=== PATIENT | female | born 1970 | race Caucasian/White ===

== ENCOUNTER 2017-10-22 04:44 | Inpatient (IN) | payer OTHER ==
[~2017-10-22] VITALS: Ht 154.9 cm; Wt 98.4 kg
--- NOTE | 2017-10-22 05:00 | NUR ---
TO BED 11 A 47 YO FEMALE PATIENT BIB FAMILY C/O SEVERE EPIGASTRIC PAIN WITH N/V X 4 HOURS. PATIENT IS AAOX4, NAD NOTED. VSS. SKIN WARM AND DRY. PLACED PATIENT ON MONITOR. GOWNED. COMFORT MEASURES RENDERED.
[2017-10-22] MEDS ORDERED: ONDANSETRON HCL/PF 4 MG/2 ML VIAL ONE ×2 (05:08→06:57)
[2017-10-22] MEDS ORDERED: FENTANYL PF 100MCG/2ML AMPUL ONE (05:08)
[2017-10-22] MEDS ORDERED: FENTANYL PF 100MCG/2ML AMPUL IV ONE (05:30)
[2017-10-22] MEDS ORDERED: IV NS 0.9% 1,000 ML BAG IV ONE (05:30)
[2017-10-22] MEDS ORDERED: ONDANSETRON HCL/PF 4 MG/2 ML VIAL IVP ONE (05:30)
--- NOTE | 2017-10-22 05:30 | NUR ---
STARTED A SALINE LOCK ON THE LEFT HAND G20, BLOOD DRAWN AND SENT TO LAB.
[2017-10-22 05:34] LABS: BASOPHILS # (AUTO) 0.1 /CMM (0.0-0.2); EOSINOPHILS % (AUTO) 0.1 % (0.0-6.0); HEMATOCRIT 41 % (33-45); HEMOGLOBIN 13.8 g/dL (11.5-14.8); LYMPHOCYTES # (AUTO) 1.1 /CMM (0.8-4.8); LYMPHOCYTES % (AUTO) 13.3 % (20.0-44.0); MEAN CORPUSCULAR HGB CONC 34 g/dl (31.0-36.0); MEAN CORPUSCULAR VOLUME 89 fL (82-100); MONOCYTES # (AUTO) 0.2 /CMM (0.1-1.30); MONOCYTES % (AUTO) 1.9 % (2.0-12.0); NEUTROPHILS # (AUTO) 6.7 /CMM (1.8-8.9); NEUTROPHILS % (AUTO) 83.7 % (43.0-81.0); PLATELET COUNT (AUTO) 215 /CMM (150-450); RDW COEFFICIENT OF VARIATION 12.2 (11.5-15.0); RED BLOOD CELL COUNT(AUTO) 4.55 MIL/uL (4.0-5.2); WHITE BLOOD COUNT (AUTO) 8.1 K/uL (4.3-11.0)
--- NOTE | 2017-10-22 05:35 | NUR ---
MEDICATED PATIENT ORDERED BY DR KENDALL
--- NOTE | 2017-10-22 05:37 | NUR ---
WASTED 50MGC FENTANYL WITH TYE THAO.
--- NOTE | 2017-10-22 05:37 | NUR ---
WITNESSED WASTE OF FENTANYL 50MCG WITH TYE LIRA.
[2017-10-22 05:50] LABS: ALBUMIN 3.6 g/dL (3.4-5.0); BILIRUBIN,DIRECT 0.1 mg/dL (0.0-0.2); BILIRUBIN,TOTAL 0.3 mg/dL (0.2-1.0); CALCIUM, SERUM 8.5 mg/dL (8.5-10.1); CREATININE 0.8 mg/dL (0.6-1.3); POTASSIUM 5.1 mmol/L (3.5-5.1); TOTAL PROTEIN, SERUM 7.4 g/dL (6.4-8.2)
[2017-10-22 06:38] LABS: APPEARANCE,URINE SL CLOUDY (CLEAR); BILIRUBIN,URINE NEGATIVE (NEGATIVE); BLOOD, URINE 2+ Ery/uL (NEGATIVE); COLOR,URINE YELLOW (YELLOW); KETONES,URINE NEGATIVE (NEGATIVE); LEUKOCYTE ESTERASE ,URINE NEGATIVE (NEGATIVE); NITRITE, URINE NEGATIVE (NEGATIVE); PROTEIN,URINE NEGATIVE (NEGATIVE); UGLUCOSE NEGATIVE (NEGATIVE); UROBILINOGEN,URINE 0.2 EU/dL (0.2)
[2017-10-22] MEDS ORDERED: KETOROLAC TROMETHAMINE INJ 30 MG/ML VIAL ONE (06:57)
[2017-10-22] MEDS ORDERED: MORPHINE SULFATE INJ 4 MG/ML DISP.SYRIN ONE (06:57)
[2017-10-22] MEDS ORDERED: ONDANSETRON HCL/PF - ER 4 MG/2 ML VIAL IV ONE (07:00)
[2017-10-22] MEDS ORDERED: MORPHINE SULFATE INJ 2 MG/ML DISP.SYRIN IV ONE (07:00)
[2017-10-22] MEDS ORDERED: KETOROLAC TROMETHAMINE INJ 30 MG/ML VIAL IV ONE (07:00)
--- NOTE | 2017-10-22 07:20 | NUR ---
RECEIVED REPORT FOR TSERING.
--- NOTE | 2017-10-22 08:08 | NUR ---
CALLED [facility] FOR ADMISSION
--- NOTE | 2017-10-22 08:51 | NUR ---
REPORT GIVEN TO CECI GAMBLE FOR TSERING UPON ADMISSION.
[2017-10-22 09:01] LABS: BACTERIA,URINE Rare /HPF (None Seen); SQUAMOUS EPITHELIAL CELL,UR Few /HPF (None Seen); WBC,URINE 0-2 /HPF (0-3)
[2017-10-22 09:15] VITALS: BP 120/72
--- NOTE | 2017-10-22 09:20 | NUR ---
PATIENT TRANSPORTED TO [facility] VIA STRETCHER. RNCECI TO PROVIDE TSERING.
--- NOTE | 2017-10-22 09:30 | NUR ---
MS TRANSPLANTER NOTE RECEIVED REPORT FROM PRIYANKA KELSEY RN. PATIENT IS ALERT AND ORIENTED X4. NO PAIN AT THIS TIME. NO SOB OR DISTRESS NOTED. ABLE TO COMMUNICATE NEEDS. IV ON LEFT HAND 22G INTACT AND PATENT NO REDNESS OR SWELLING NOTED. PER PATIENT HAD NAUSEA AND VOMITING FOR >3 DAYS DUE TO EATING GREASY, FATTY FOOD. NO NAUSEA OR VOMITING NOTED. FULL CODE NO ISOLATION. NKDA. 97% ON ROOM AIR TOLERATING WELL. ALL LABS WITHIN NORMAL LIMIT. AWAITING MD ORDERS AT THIS TIME. PATIENT CURRENTLY NPO AT THIS TIME. WILL WAIT FOR MD ORDERS.
[2017-10-22] MEDS ORDERED: ACETAMINOPHEN 325 MG TABLET PO PRN (11:30)
[2017-10-22] MEDS ORDERED: HYDROCODONE/APAP 5/325MG 1 EACH TABLET PO PRN (11:30)
[2017-10-22] MEDS ORDERED: ONDANSETRON HCL/PF 4 MG/2 ML VIAL IVP PRN (11:30)
[2017-10-22] MEDS ORDERED: ZOLPIDEM TARTRATE 5 MG TABLET PO PRN (11:30)
[2017-10-22] MEDS ORDERED: Z GUARD REMEDY 2 OZ OINT TP PRN (11:30)
[2017-10-22] MEDS ORDERED: MAGNESIUM HYDROXIDE 30 ML UDC PO PRN (11:30)
[2017-10-22] MEDS ORDERED: FENTANYL PF 100MCG/2ML AMPUL IV PRN (11:30)
[2017-10-22] MEDS: IV NS 0.9% 1,000 ML IV SCH ×2 (11:52→21:30)
[2017-10-22] MEDS: PIPERACILLIN /TAZOBACTAM 3.375 G in IV D5W 100 ML IV SCH ×3 (12:44→23:54)
--- NOTE | 2017-10-22 13:38 | NUR ---
MS RN NOTE PATIENT HEAD DOWN FOR NUCLEAR MEDICINE HIDA SCAN
--- NOTE | 2017-10-22 15:17 | NUR ---
MS RN NOTE PATIENT BACK FROM HIDA SCAN. PATIENT TO GO BACK AROUND 5:30
[2017-10-22 16:00] VITALS: BP 113/70
--- NOTE | 2017-10-22 17:30 | NUR ---
MS RN NOTE PATIENT HEADED TO HIDA SCAN AND WILL MONITOR PATIENT WHEN RETURNS
--- NOTE | 2017-10-22 18:00 | NUR ---
MS RN NOTE PATIENT BACK FROM HIDA SCAN. PATIENT STABLE AND AWAITING RESULTS AT THIS TIME
--- NOTE | 2017-10-22 18:35 | NUR ---
MS RN CLOSING NOTE PATIENT RESTING AT THIS TIME. NO PAIN AT THIS TIME. NO SOB OR DISTRESS NOTED. CALL LIGHT WITHIN REACH AT ALL TIMES. SAFETY MEASURES IMPLEMENTED. ABLE TO COMMUNICATE NEEDS. IV INTACT AND PATENT WITH IV ANTIBIOTICS AT THIS TIME TOLERATING WELL. ALL DUE MEDICATIONS GIVEN ORDERED. ALL NURSING CARE NEEDS ATTENDED TO NEEDED. POSSIBLE SURGERY WITH DR. GASPAR, WILL ENDORSE TO REGULATORY COORDINATOR NURSE FOR TSERING
--- NOTE | 2017-10-22 19:30 | NUR ---
MS/RN OPENING NOTES PT RECEIVED AWAKE, RESTING COMFORTABLY IN BED. A/OX4. ON ROOM AIR, BREATHING EVEN AND UNLABORED. DENIES SOB OR PAIN AT THIS TIME. PT SAYS SHE IS COMFORTABLE AT THIS TIME. IV TO LEFT HAND PATENT AND INTACT RUNNING IVF ORDERED. FAMILY AT BEDSIDE. BED IN LOW/LOCKED POSITION WITH CALL LIGHT IN REACH. SIDE RAILS UPX2. WILL CONTINUE TO MONITOR
[2017-10-22 20:00] VITALS: BP 111/62
--- NOTE | 2017-10-22 20:45 | NUR ---
MS/RN NOTES RELAYED HIDA SCAN RESULT TO DR. GASPAR. PT IS ANXIOUS TO KNOW IF SURGERY WILL BE DONE TONIGHT OR TOMORROW. PER DR. GASPAR, PLAN FOR SURGERY TOMORROW AT 1PM. METAL DRILL PRESS OPERATOR AND NURSING CREATIVE SERVICES COORDINATOR MADE AWARE
[2017-10-23 03:25] LABS: INR 0.95 (0.87-1.13)
--- NOTE | 2017-10-23 05:32 | NUR ---
MS/RN NOTES PT NOTED WITH SOME ANXIETY, IS AFRAID OF NEEDLES, NERVOUS ABOUT LAB DRAW THIS AM AND WOULD LIKE SOMETHING TO CALM HER DOWN ESPECIALLY PRIOR TO GOING TO SURGERY TODAY. EMOTIONAL SUPPORT PRN. DR. BRINK WITH ORDERS FOR ATIVAN 1MG IV Q6H PRN. ORDERS READBACK PER PROTOCOL.
[2017-10-23] MEDS: LORAZEPAM INJ 2 MG/ML VIAL IV PRN ×2 (05:51→11:53)
[2017-10-23] MEDS: PIPERACILLIN /TAZOBACTAM 3.375 G in IV D5W 100 ML IV SCH (05:52)
[2017-10-23 06:54] LABS: BASOPHILS % (AUTO) 0.6 % (0.0-2.0); EOSINOPHILS % (AUTO) 0.7 % (0.0-6.0); HEMATOCRIT 36 % (33-45); HEMOGLOBIN 12.2 g/dL (11.5-14.8); LYMPHOCYTES # (AUTO) 2.5 /CMM (0.8-4.8); LYMPHOCYTES % (AUTO) 38.3 % (20.0-44.0); MEAN CORPUSCULAR HGB CONC 34 g/dl (31.0-36.0); MEAN CORPUSCULAR VOLUME 89 fL (82-100); MONOCYTES # (AUTO) 0.5 /CMM (0.1-1.30); MONOCYTES % (AUTO) 7.8 % (2.0-12.0); NEUTROPHILS # (AUTO) 3.5 /CMM (1.8-8.9); NEUTROPHILS % (AUTO) 52.6 % (43.0-81.0); PLATELET COUNT (AUTO) 193 /CMM (150-450); RDW COEFFICIENT OF VARIATION 12.8 (11.5-15.0); RED BLOOD CELL COUNT(AUTO) 4.02 MIL/uL (4.0-5.2); WHITE BLOOD COUNT (AUTO) 6.6 K/uL (4.3-11.0)
[2017-10-23 07:24] LABS: CALCIUM, SERUM 7.8 mg/dL (8.5-10.1); CREATININE 0.9 mg/dL (0.6-1.3); MAGNESIUM 2.1 mg/dL (1.8-2.4); PHOSPHORUS 2.7 mg/dL (2.5-4.9); POTASSIUM 3.5 mmol/L (3.5-5.1)
--- NOTE | 2017-10-23 07:46 | NUR ---
MS/RN CLOSING NOTES PT CURRENTLY ASLEEP, MOTHER AT BEDSIDE. ON ROOM AIR ,BREATHING EVEN AND UNLABORED. CALM POST ADMINISTRATION OF ATIVAN. PT NPO FOR SURGERY TODAY WITH DR. GASPAR AT 1PM. IV TO LEFT HAND PATENT AND INTACT RUNNING IVF ORDERED. ZOSYN CURRENTLY INFUSING. RADIOLOGY CALLED X3 FOR CHEST XRAY, CHANGED FROM ROUTINE TO STAT. KEPT PT COMFORTABLE DURING SHIFT. EMOTIONAL SUPPORT PROVIDED PRN. BED IN LOW/LOCKED POSITION WITH CALL LIGHT IN REACH. SIDE RAILS UPX2. ENDORSED TO DAY SHIFT RN TSERING.
[2017-10-23] MEDS ORDERED: IV NS 0.9% 1,000 ML IV PRN (07:51)
[2017-10-23 08:00] VITALS: BP 118/63
[2017-10-23] MEDS: PIPERACILLIN /TAZOBACTAM 3.375 G in IV D5W 50 ML IV SCH ×3 (11:52→23:35)
[2017-10-23] MEDS ORDERED: LIDOCAINE 0.5% HCL 50 ML VIAL ONE ×2 (12:57→13:52)
[2017-10-23] MEDS ORDERED: BUPIVACAINE 0.25% 75 MG/30 ML VIAL ONE (12:57)
[2017-10-23] MEDS ORDERED: MIDAZOLAM HCL 2 MG/2ML VIAL ONE (13:32)
[2017-10-23] MEDS ORDERED: FENTANYL PF 250MCG/5ML AMPUL ONE (13:32)
[2017-10-23] MEDS ORDERED: SUCCINYLCHOLINE CHLORIDE 20 MG/ML VIAL ONE (13:46)
[2017-10-23] MEDS ORDERED: ROCURONIUM BROMIDE 50 MG/5 ML ONE (13:46)
[2017-10-23] MEDS ORDERED: DESFLURANE 240 ML BOTTLE IH ONE ×2 (14:22→15:37)
[2017-10-23] MEDS ORDERED: FLUMAZENIL 0.5 MG VIAL ONE (16:21)
[2017-10-23] MEDS ORDERED: METOCLOPRAMIDE HCL 10 MG/2 ML VIAL ONE (17:23)
[2017-10-23] MEDS ORDERED: FENTANYL PF 100MCG/2ML AMPUL IV PRN (17:30)
--- NOTE | 2017-10-23 17:39 | NUR ---
Patient lives locally,she is ambulatory and independent with adl's. Has good family support. No dc planning needs identified at this time. Addendum: 10/23/17 at 1739 by FABIENNE GIPSON RN Amended: Links added.
--- NOTE | 2017-10-23 17:43 | NUR ---
PT RECEIVED FROM SURGERY. LETHARGIC, BUT NO SOB OR DISTRESS, DENIES PAIN. VITALS CHECKED AND RECORDED, WILL RECORD PER POLICY. CHECKED MD ORDERS. WILL PLACE ALL AVAILABLE. BED IN A LOW POSITION, CALL LIGHT WITHIN REACH, FAMILY AT THE BEDSIDE. WILL MONITOR.
[2017-10-23 17:45] VITALS: BP 110/60
[2017-10-23 18:00] VITALS: BP 104/66
[2017-10-23] MEDS: IV LR 1000 ML 1,000 ML IV PRN (18:05)
[2017-10-23 18:15] VITALS: BP 108/69
[2017-10-23 18:30] VITALS: BP 117/56
[2017-10-23] MEDS: ONDANSETRON HCL/PF 4 MG/2 ML VIAL IVP PRN (18:32)
--- NOTE | 2017-10-23 18:57 | NUR ---
NO SIGNIFICANT CHANGES IN PATIENT CONDITION THROUGHOUT THE SHIFT. NO SOB OR DISTRESS NOTED AT THIS TIME. PATIENT DENIES PAIN. BED IN A LOW POSITION, CALL LIGHT WITHIN PATIENT REACH, FAMILY IS AT THE BEDSIDE. WILL ENDORSE FOR TSERING.
--- NOTE | 2017-10-23 19:35 | NUR ---
MS/RN NOTES RECEIVED PT. LYING IN BED RESTING. BREATHING EVEN AND UNLABORED ON 2LPM O2 VIA NC. NO SOB, RESPIRATORY DISTRESS OR COMPLAINTS OF PAIN NOTED AT THIS TIME. PT. IS EASILY AROUSABLE TO NAME. AWAKE, ALERT AND ORIENTED X 4. PT. WITH LEFT HAND 22 GAUGE PERIPHERAL IV PRESENT, PATENT AND INTACT ADMINISTERING TO PT. LR @ 120ML/HR. PT. IS S/P CHOLECYSTECTOMY WITH DR. GASPAR ON 10/23/17. PT. WITH FOUR SURGICAL INCISIONS NOTED TO ABDOMEN. NO BLEEDING, DRAINAGE OR S/S OF INFECTION NOTED AT SURGICAL INCISION SITES. PT. WITH FAMILY MEMBERS PRESENT AT BEDSIDE. BED LOCKED AND IN LOWEST POSITION, SIDE RAILS UP X2, CALL LIGHT WITHIN REACH, WILL CONTINUE TO MONITOR.
[2017-10-23 20:00] VITALS: BP 102/61
[2017-10-24] MEDS: ONDANSETRON HCL/PF 4 MG/2 ML VIAL IVP PRN ×2 (00:44→07:57)
[2017-10-24] MEDS: HYDROCODONE/APAP 5/325MG 1 EACH TABLET PO PRN ×4 (00:44→20:45)
[2017-10-24] MEDS: IV LR 1000 ML 1,000 ML IV PRN ×2 (06:22→22:37)
[2017-10-24] MEDS: PIPERACILLIN /TAZOBACTAM 3.375 G in IV D5W 50 ML IV SCH (06:22)
--- NOTE | 2017-10-24 06:43 | NUR ---
MS/RN NOTES PT. LYING IN BED RESTING. BREATHING EVEN AND UNLABORED ON 2LPM O2 VIA NC. NO SOB, RESPIRATORY DISTRESS OR COMPLAINTS OF PAIN NOTED AT THIS TIME. PT. WITH LEFT HAND 22 GAUGE PERIPHERAL IV PRESENT, PATENT AND INTACT ADMINISTERING TO PT. LR @ 120ML/HR. PT. REFUSING PICTURES OF INCISION SITES AT THIS TIME AND STATES " ILL HAVE IT DONE AFTER I GET MY NEXT PAIN MEDICATION". WILL ENDORSE TO DAYSHIFT NURSE TO FOLLOW UP WITH PICTURES OF INCISION SITES. ALL PT. NEEDS MET. BED LOCKED AND IN LOWEST POSITION, SIDE RAILS UP X2, CALL LIGHT WITHIN REACH, WILL ENDORSE TO DAYSHIFT NURSE FOR CONTINUITY OF CARE.
--- NOTE | 2017-10-24 06:50 | NUR ---
MS/RN NOTES PT. IS REFUSING AM BLOOD DRAW AT THIS TIME. PT. STATES SHE THINKS SHE WILL DO IT AFTER SHE HAS BREAKFAST AND PAIN MEDICATION LATER THIS MORNING. PT. HAS NO COMPLAINTS OF PAIN AT THIS TIME. WILL ENDORSE TO DAYSOHFT NURSE TO FOLLOW UP.
--- NOTE | 2017-10-24 07:20 | NUR ---
REPORT RECEIVED AT THE BEDSIDE. NO SOB OR DISTRESS NOTED AT THIS TIME. PATIENT REPORTS TOLERABLE PAIN AT THIS TIME. BED IN A LOW POSITION, CALL LIGHT WITHIN PATIENT REACH. WILL CONTINUE TO MONITOR.
[2017-10-24 08:00] VITALS: BP 109/65
[2017-10-24 11:41] LABS: BASOPHILS % (AUTO) 0.3 % (0.0-2.0); HEMATOCRIT 35 % (33-45); HEMOGLOBIN 12.1 g/dL (11.5-14.8); LYMPHOCYTES # (AUTO) 2.2 /CMM (0.8-4.8); LYMPHOCYTES % (AUTO) 22.3 % (20.0-44.0); MEAN CORPUSCULAR HGB CONC 34 g/dl (31.0-36.0); MEAN CORPUSCULAR VOLUME 89 fL (82-100); MONOCYTES # (AUTO) 0.8 /CMM (0.1-1.30); MONOCYTES % (AUTO) 8.5 % (2.0-12.0); NEUTROPHILS # (AUTO) 6.7 /CMM (1.8-8.9); NEUTROPHILS % (AUTO) 68.9 % (43.0-81.0); PLATELET COUNT (AUTO) 210 /CMM (150-450); RDW COEFFICIENT OF VARIATION 13.1 (11.5-15.0); RED BLOOD CELL COUNT(AUTO) 3.95 MIL/uL (4.0-5.2); WHITE BLOOD COUNT (AUTO) 9.7 K/uL (4.3-11.0)
[2017-10-24 12:22] LABS: CALCIUM, SERUM 7.8 mg/dL (8.5-10.1); CREATININE 0.9 mg/dL (0.6-1.3); POTASSIUM 3.3 mmol/L (3.5-5.1)
[2017-10-24 16:00] VITALS: BP 113/58
--- NOTE | 2017-10-24 19:20 | NUR ---
MS/RN NOTES RECEIVED PT. LYING IN BED. PT. IS AWAKE, ALERT AND ORIENTED X 4. BREATHING EVEN AND UNLABORED ON ROOM AIR. NO SOB, RESPIRATORY DISTRESS OR COMPLAINTS OF PAIN NOTED AT THIS TIME. PT. WITH LEFT HAND 22 GAUGE PERIPHERAL IV PRESENT, PATENT AND INTACT ADMINISTERING TO PT. LR @ 120ML/HR. PT. IS S/P CHOLECYSTECTOMY WITH DR. GASPAR ON 10/23/17 WITH FOUR SURGICAL INCISIONS NOTED TO ABDOMEN. NO BLEEDING, DRAINAGE OR S/S OF INFECTION NOTED AT SURGICAL INCISION SITES. PT. WITH FAMILY MEMBERS PRESENT AT BEDSIDE. BED LOCKED AND IN LOWEST POSITION, SIDE RAILS UP X2, CALL LIGHT WITHIN REACH, WILL CONTINUE TO MONITOR.
--- NOTE | 2017-10-24 19:28 | NUR ---
MS/RN NOTES CALLED [facility] AND NOTIFIED EPIC BUTT PRESSER HERMAN SANTANA PT. POTASSIUM LEVEL IS 3.3 AND HAS NOT BEEN REPLACED. PER EPIC BUTT PRESSER HERMAN SANTANA NEW ORDER: POTASSIUM CHLORIDE 20MEQ PO X1 NOW. WILL CARRY OUT ORDER. WILL CONTINUE TO MONITOR.
[2017-10-24] MEDS ORDERED: POTASSIUM CHLORIDE 20 MEQ TAB.PRT.SR PO ONE (19:30)
[2017-10-24 20:00] VITALS: BP 115/73
[2017-10-25] MEDS: HYDROCODONE/APAP 5/325MG 1 EACH TABLET PO PRN ×2 (03:03→09:05)
--- NOTE | 2017-10-25 06:42 | NUR ---
MS/RN NOTES PT. IS LYING IN BED RESTING. BREATHING EVEN AND UNLABORED ON ROOM AIR. NO SOB, RESPIRATORY DISTRESS OR COMPLAINTS OF PAIN NOTED AT THIS TIME. PT. WITH LEFT HAND 22 GAUGE IV SALINE LOCK PRESENT, PATENT AND INTACT. ALL PT. NEEDS MET. BED LOCKED AND IN LOWEST POSITION, SIDE RAILS UP X2, CALL LIGHT WITHIN REACH, WILL ENDORSE TO DAYSHIFT NURSE FOR CONTINUITY OF CARE.
--- NOTE | 2017-10-25 07:10 | NUR ---
RN NOTES PT IS SITTING IN THE CHAIR, ALERT AND ORIENTED. PT ON RA, RESPIRATIONS ARE EVEN AND UNLABORED. IV ON L HAND INTACT AND PATENT. NO SIGNS OF DISTRESS NOTED. SAFETY MEASURES ARE IN PLACE, CALL LIGHT IS IN REACH. WILL CONTINUE TO MONITOR.
[2017-10-25 08:00] VITALS: BP 128/80
[2017-10-25] MEDS ORDERED: HYDROCODONE/APAP 10/325MG 1 EA TABLET PO PRN (10:30)
[2017-10-25] MEDS: ONDANSETRON HCL/PF 4 MG/2 ML VIAL IVP PRN (10:42)
[2017-10-25] MEDS: POLYETHYLENE GLYCOL 3350 17 GM POWD.PACK PO SCH ×2 (10:43→22:00)
[2017-10-25] MEDS ORDERED: FENTANYL PF 100MCG/2ML AMPUL IV PRN (11:00)
[2017-10-25] MEDS ORDERED: BISACODYL (5 MG) 5 MG TABLET.DR PO PRN (11:00)
[2017-10-25] MEDS ORDERED: BISACODYL SUPP (10 MG) 10 MG/SUPP.RECT SUPP.RECT RC PRN (11:00)
[2017-10-25] MEDS ORDERED: oxyCODONE/APAP (5/325 MG) 1 UDTAB TABLET PO PRN ×2 (11:30)
[2017-10-25] MEDS ORDERED: TRAMADOL HCL 50 MG TABLET PO PRN (11:30)
[2017-10-25 16:00] VITALS: BP 130/73
--- NOTE | 2017-10-25 18:38 | NUR ---
RN NOTES PT IS IN BED, ALERT AND ORIENTED, RESTING COMFORTABLY. PT ON RA, RESPIRATIONS ARE EVEN AND UNLABORED. IV ON L HAND INTACT AND SL. ALL MEDS WERE GIVEN ORDERED AND PT NEEDS MET. NO SIGNS OF DISTRESS NOTED. SAFETY MEASURES ARE IN PLACE, CALL LIGHT IS IN REACH. WILL ENDORSE TO HEAD START COORDINATOR RN FOR CONTINUITY OF CARE.
--- NOTE | 2017-10-25 19:30 | NUR ---
RN INITIAL NOTES: RECEIVED REPORT FROM IRENE GAMBLE, PT IN BED, AWAKE, A/O X4 ON RA, RESPIRATION EVEN AND UNLABORED, S/P CHOLECYSTECTOMY 10/[address] GASPAR, ABDOMINAL INCISIONS PRESENT, BRUISING NOTED, NO ACTIVE BLEEDING, ABDOMEN SOFT TO TOUCH WITH ACTIVE BOWEL SOUND HEARD UPON AUSCULTATION OF THE ABDOMEN. PT STATED HER PAIN IS TOLERABLE 3/10, AND DOES NOT NEED HER PAIN MEDICATION AT THIS TIME. INFORMED PT ABOUT HER OPTIONS FOR PAIN MEDICATIONS. DISCUSSED WITH PT REGARDING PLAN OF CARE FOR JUSTIN, ALSO INFORM OF HER MIRALAX SCHEDULE FOR 2100, PT STATED SHE DOESN'T NEED IT, AND WILL NOT TAKE THE SAID MEDICATION. ALSO PT USES BED SIDE COMMODE, ABLE TO PERFORM ADLS WITH STANDBY ASSIST. SAFETY PRECAUTIONS FOR FALL INITIATED, CALL LIGHT IN REACH, WILL CONTINUE MONITORING PT.
[2017-10-25 20:00] VITALS: BP 131/77
--- NOTE | 2017-10-25 20:00 | NUR ---
rn notes: discussed with pt about use of incentive spirometry to prevent any lung complication after surgery but pt refused, stated sh had her surgery on the and should have received or started on I.S post op day 1, she stated she's doing good and does not need it now, she refused using incentive spirometry and asked rn to please return the said supply/aparatus back in the cabinet. education provided to the pt.
--- NOTE | 2017-10-25 21:20 | NUR ---
PRN PERCOCET: PT C/O 11/08 ABDOMINAL PAIN REQUESTING FOR PAIN MEDICATION, SHE WILL TRY TO TAKE PERCOCET AND HOPE THAT IT WILL NOT MAKE HER NAUSEATED, HOWEVER SHE ALSO HAVE PRN ZOFRAN IN CASE SHE NEEDS IT, PT STATED HER PAIN IS DESCRIBED TO BE ACHING AND MORE OF MUSCLE CRAMPS, PRN PERCOCET 5/325MG TAB PO ADMINISTERED TO THE PT AT THIS TIME, TRICIA LEAL PROVIDED ALSO TO THE PT, WILL COME BACK AFTER 15MINS TO CHECK AND REASSESS PT
--- NOTE | 2017-10-25 22:20 | NUR ---
pain reassessment: pt stated percocet helped a lot with her pain, pain level now is 1/10 as pt verbalized. she denies any nausea or vomiting.
--- NOTE | 2017-10-26 03:00 | NUR ---
RN NOTES REGARDING REFUSAL FOR INCENTIVE SPIROMETRY: DISCUSSED WITH PT AGAIN REGARDING ORDER FOR I.S Q4HRS TO BE PERFORMED WITH RT, PT REFUSED STATED "ITS BEEN COUPLE OF DAYS AND SHE DOESN'T FEEL THE NEED TO USE INCENTIVE SPIROMETRY, EDUCATION PROVIDED TO THE PT, HOWEVER SHE STILL REFUSED.
--- NOTE | 2017-10-26 04:49 | NUR ---
contacted epic: pt c/o migraines, stated she usually take butalbital (fiorinal with codeine), pt specifically speeled out type of medication she usually takes. pt stated brand name is butalbital/aspirin/caffeine 1 capsule she takes for migraines. contacted [facility] supervisor chlorine liquefaction talked to md, relayed the situation and per md okay to give/order Butalbital/aspirin/caffeine 1cap every 6hrs prn for migraines
[2017-10-26] MEDS ORDERED: BUTALBITAL/ASPIRIN/CAFFEINE 1 CAP CAPSULE PO PRN (05:00)
--- NOTE | 2017-10-26 05:00 | NUR ---
rn notes: talked to nursing sup regarding medication fiorinal capsule, as medication not available in the [facility], per nursing sup, the said medication is locked up and only pharmacists have access to it, relayed the situation to the pt, and pt understand, she stated the ice packed is helping with her migraine right now, and the oxygen, she stated she is willing to wait till 0700 am for the pharmacy, however in case pain became not tolerable, she will call rn for other pain medication options.
--- NOTE | 2017-10-26 06:42 | NUR ---
rn closing notes: pt in bed, remains on room air, satting well, denies any pain or discomfort at this time, no n/v noted throughout the shift. pt able to do ADLS independently. iv access remains patent and flushing well, abdominal incision remains free from any bleeding. vs remains stable, needs attended. no untoward events happened throughout the shift. possible dc today to home, exit care filled up, to be completed by day shift for further orders from md. safety precautions for fall remains engaged, call light in reach, will endorse to day rn for oralia.
--- NOTE | 2017-10-26 07:15 | NUR ---
MS/RN OPENING NOTE PATIENT IN BED AWAKE. ALERT AND ORIENTED X4. DENIES SOB. RESPIRATION REGULAR AND UNLABORED. DENIES PAIN AT THIS TIME. PATIENT CONTINENT ON BOWEL AND BLADDER. ABDOMINAL INCISION WITH NO BLEEDING AND NO S/S INFECTION. LEFT HAND G 22 PATENT AND SALINE LOCKED. BED LOW AND LOCKED. SIDE RAILS UP X2. CALL LIGHT WITHIN REACH. WILL CONTINUE MONITOR.
[2017-10-26 08:00] VITALS: BP 137/85
[2017-10-26] MEDS ORDERED: BUTALB/APAP/CAFFEINE 1 EACH TABLET PO PRN (08:30)
--- NOTE | 2017-10-26 12:00 | NUR ---
MS/RN NOTE PATIENT ALERT AND ORIENTED X4. RESPIRATION REGULAR AND UNLABORED. DENIES SOB. DENIES PAIN. ABDOMINAL INCISION SITE WITH NO BLEEDING AND NO S/S INFECTION. THE PATIENT IS GIVEN DISCHARGE INSTRUCTIONS/EDUCATION. THE PATIENT VERBALIZED UNDERSTANDING AND SIGNED PAPERS. PATIENT PHOTORADIO OPERATOR DONE BY THE . PATIENT LEAVING THE HOSPITAL IN STABLE CONDITION.
== END 2017-10-26 12:27 | disposition home or self-care (01) | DRG 417 ==
LOC: ER 04:46 → MED 09:11
PROVIDERS: ADMIT Nurse Practitioner Acute Care; ATTEND Nurse Practitioner Acute Care
PROC: 0FT44ZZ Resection of Gallbladder, Percutaneous Endoscopic Approach (ICD-10-PCS; principal; 2017-10-23 14:10)
PROC: 0DNU4ZZ Release Omentum, Percutaneous Endoscopic Approach (ICD-10-PCS; principal; 2017-10-23 14:10)
DX: K81.0 Acute cholecystitis (principal); E43 Unspecified severe protein-calorie malnutrition; Z68.41 Body mass index [BMI] 40.0-44.9, adult; E66.01 Morbid (severe) obesity due to excess calories; G43.909 Migraine, unspecified, not intractable, without status migrainosus; Z87.891 Personal history of nicotine dependence; Z83.3 Family history of diabetes mellitus; Z82.5 Family history of asthma and other chronic lower respiratory diseases; K59.00 Constipation, unspecified; E78.5 Hyperlipidemia, unspecified; K82.8 Other specified diseases of gallbladder
CPT/HCPCS: 36415; 71045-TC; 76705-TC; 78226; 80048-TC; 80061-TC; 80076-TC; 81000-TC; 83690-TC; 83735-TC; 84100-TC; 84703-TC; 85025-TC; 85610-TC; 85730-TC; 86850-TC; 87081-TC; 88304-TC; 88305-TC; 88313-TC; 88342; A4606; A6402; A9537; J0330; J1100; J1885; J2060; J2250; J2270; J2405; J2543; J2704; J2765; J3010; J3490; J7030; J7060; J7120; Z7610